=== PATIENT | female | born 2000 | race Caucasian/White ===

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

== ENCOUNTER → 2018-06-11 | Outpatient (CLI) | payer MEDICAID | LOC: OD 09:29 | PROVIDERS: ATTEND Pediatrics | DX: Z02.0 Encounter for examination for admission to educational institution (principal) | CPT/HCPCS: 36415; 86317 ==